=== PATIENT | female | born 1990 | race Caucasian/White ===

== ENCOUNTER 2024-11-21 16:48 | Emergency (ER) | payer BC, SELFPAY ==
[2024-11-21 16:57] VITALS: BP 169/108
[2024-11-21 21:42] VITALS: BP 144/93
[2024-11-21 21:43] VITALS: BMI 38.5
[2024-11-21 22:00] VITALS: BP 131/78
--- NOTE | 2024-11-21 22:10 | ED.GENMED ---
History of Present Illness
General
Chief Complaint: Crisis Evaluation
Source: patient
Exam Limitations: none
Time Seen by Provider: 11/21/24 21:49
Nursing documentation reviewed up to this point in time: agreed with
History of Present Illness
History of Present Illness:
33-year-old female past medical history of anxiety depression presents with mom for evaluation of depression anxiety. Patient has been on Zoloft for the past 2 months. Mom reports patient has been very anxious and does have issues with
sleeping/insomnia. For the past 24 hours patient started with new onset auditory and visual hallucinations. All throughout the night patient was having auditory visual hallucinations. Mom reports patient was very anxious and believes that what she
was seeing and hearing was real. Patient now is aware that they were not real but she is persistently having hallucinations. She reports she is seeing bugs flying around her foot and still is hearing music.
Patient smokes occasional marijuana. She does drink alcohol several times a week last drink 2 days ago.
Phy Exam
General Physical Exam
General Presentation: no apparent distress
General age: appears stated age
General Skin: warm and dry
General Habitus: obese
General Mental: alert
General Hydration: appears well hydrated
Cardiovascular Exam
Cardiovascular Exam: no murmur and tachycardia
Pulmonary Exam
Pulmonary Exam: lungs clear
Neurological Exam
Neurological Exam: alert and oriented x3
Musculoskeletal Exam
Musculoskeletal Exam: full ROM
Skin Exam
Skin Exam: normal color and warm/dry
Psychiatric Exam
Psychiatric Exam: anxious and hallucination (pt visibly is seeing 'nats on her foot ' )
Course
Orders/Labs/Results
Orders:
Orders
11/21/24 21:22
Crisis Consult Urgent
Reason for Consult: hallucinations
11/21/24 22:35
Test Result ONCE
11/21/24 22:38
CT Head W/o Iv Contrast Urgent
Comment:
Reason For Exam: new onset hallucinations
11/21/24 22:40
Alcohol Urgent
CMP [Comprehensive Metabolic Panel] Urgent
Complete Blood Count/With Diff Urgent
HCG, Serum Qualitative Screen Urgent
Comment: Notify provider if positive test present
11/21/24 23:29
Add On- LAB Urgent
Tests Added?: alcohol
Drug Screen, Urine [Urine Drug Abuse Screen] Urgent
Date Specimen was Collected: 11/22/24
Time Specimen was Collected: 00:30
11/22/24 02:54
Lorazepam [Ativan] 1 mg IV NOW STA
11/22/24 02:56
Lorazepam [Ativan] 2 mg .ROUTE .STK-MED ONE
11/22/24 10:18
Ibuprofen [Motrin] 400 mg .ROUTE .STK-MED ONE
11/22/24 10:22
Ibuprofen [Motrin] 400 mg PO NOW STA
Abnormal Lab Results
11/21/24
22:40
Hgb 10.8 L g/dL
(12.0-16.0)
Hct 34.3 L %
(37.0-47.0)
MCV 76.6 L fL
(81.0-99.0)
MCH 24.1 L pg
(27.0-31.0)
MCHC 31.5 L g/dL
(33.0-37.0)
RDW 19.3 H %
(11.5-14.5)
Plt Count 86 L 10^3/uL
(130-400)
Absolute Monos (auto) 0.7 H 10^3/uL
(0.1-0.6)
Carbon Dioxide 21 L mmol/L
(22-30)
Glucose 114 H mg/dl
(70-99)
AST 79 H U/L
(14-36)
ALT 64 H U/L
(0-35)
Albumin 5.1 H g/dl
(3.5-5.0)
11/21/24 22:40
11/21/24 22:40
Vital Signs
Initial and Last Documented VS:
Initial Vital Signs
Temp Pulse Resp BP Pulse Ox
98 F 108 16 169/108 97
11/21/24 16:57 11/21/24 16:57 11/21/24 16:57 11/21/24 16:57 11/21/24 16:57
Last Documented Vital Signs
Temp Pulse Resp BP Pulse Ox
98.5 F 83 16 156/104 100
11/22/24 03:04 11/22/24 07:45 11/22/24 07:45 11/22/24 12:13 11/22/24 07:45
[employer] consulted with Physician
[employer] consulted with physician?: Yes
Name of Physician Consulted: [facility]
MDM/Problems Addressed
MDM/Problems Addressed:
Patient is a 33-year-old female with anxiety started on Zoloft 2 months ago presents with 24 hours of auditory and visual hallucinations. Does report over that she has had difficulty sleeping and insomnia recently and did have a similar episode
several weeks ago. She is aware that she has been having these hallucinations. She is awake alert cooperative. She does drink alcohol several times a week but denies for the past several days.
She denies any recent trauma illness fever chills.
Basic labs reviewed AST ALT minimally elevated urine drug screen alcohol pending at this time. CAT scan ordered results pending. Patient was eval by crisis will likely need inpatient placement she is requesting this and agreeable.
*Radiology
Radiology exam reviewed: radiology read reviewed
*Pulse Oximetry
SaO2: 96
Oxygen Mode of Delivery: Room air
Patient hypoxic: no
*Critical Care Note
Total Time (30-74mins, 75-104mins- exclusive of procedures): Not Applicable
ED Attending Note
-
Portions of this chart may have been created with voice recognition software.� Occasional wrong word or��sound alike� substitutions may have occurred due to the inherent limitations of voice recognition software.
Discharge Plan
Departure
Patient Disposition: Psych Facility
Date of Disposition: 11/22/24
Time of Disposition: 00:09
Patient with high blood pressure during this ER visit?: Yes
Condition: Fair
Covid-19: Not Applicable
Discharge Problem:
Hallucinations
Prescriptions:
No Action
ondansetron 8 mg Tablet,Disintegrating
8 mg PO Q12H PRN (Reason: n/v)
pantoprazole [Protonix] 20 mg Tablet,Delayed Release (Dr/Ec)
20 mg PO DAILY
ibuprofen [Advil] 200 mg Tablet
600 - 800 mg PO Q8H PRN (Reason: pain)
sertraline [Zoloft] 50 mg Tablet
50 mg PO DAILY
Referrals:
Kenny Sanchez MD [Family Provider, Family Practice]
Interventions
Interventions:
*Risk Screen - Suicide Last Done: 11/21/24 16:59
*General Assessment Last Done: 11/21/24 21:44
*Neglect/Abuse Screening Last Done: 11/21/24 16:59
*ED- Fall Risk Assessment Last Done: 11/21/24 21:44
*ED COVID-19 Vaccine History Last Done: 11/21/24 21:44
*Nursing Disposition Last Done: 11/22/24 12:14
ED-Psychological Assessment Last Done: 11/22/24 07:46
Discharge Date and Time
Discharge Date/Time: 11/22/24 12:14
Print Language: UPPER SORBIAN
[2024-11-21 22:58] LABS: HCG, Serum Qualitative Screen Negative
[2024-11-21 23:00] VITALS: BP 140/94
[2024-11-21 23:01] LABS: % Basophils 0.5 % (0-2); % Eosinophils 0.6 % (0-6); % Immature Granulocytes 0.5 % (0-0.5); % Lymphocytes 20.5 % (20.5-51.1); % Monocytes 8.9 % (1.7-9.3); Absolute Eosinophils 0.1 10^3/uL (0-0.7); Absolute Lymphocytes 1.7 10^3/uL (1.2-3.4); Absolute Monocytes 0.7 10^3/uL (0.1-0.6); Absolute Neutrophils 5.8 10^3/uL (1.4-6.5); Hematocrit 34.3 % (37.0-47.0); Hemoglobin 10.8 g/dL (12.0-16.0); Mean Corp Hgb Conc. 31.5 g/dL (33.0-37.0); Mean Corpuscular Hgb 24.1 pg (27.0-31.0); Mean Corpuscular Volume 76.6 fL (81.0-99.0); Nucleated Red Blood Cells % 0 %; Red Blood Cell Count 4.48 10^6/uL (4.20-5.40); Red Cell Dist. Width 19.3 % (11.5-14.5); White Blood Cell Count 8.3 10^3/uL (4.8-10.8)
[2024-11-21 23:11] LABS: ALT (SGPT) 64 U/L (0-35); AST (SGOT) 79 U/L (14-36); Albumin 5.1 g/dl (3.5-5.0); Alkaline Phosphatase 53 U/L (38-126); Blood Urea Nitrogen 16 mg/dl (7-17); Calcium 9.7 mg/dl (8.4-10.2); Carbon Dioxide 21 mmol/L (22-30); Chloride 102 mmol/L (98-107); Estimated Creatinine Clearance > 125 ml/min; Glucose 114 mg/dl (70-99); Potassium 3.5 mmol/L (3.5-5.1); Sodium 138 mmol/L (135-145); Total Bilirubin 0.7 mg/dl (0.2-1.3); eGFR > 60.00
[2024-11-21 23:25] LABS: Platelet Count 86 10^3/uL (130-400)
[2024-11-22] VITALS: BP 148/80
[2024-11-22 00:33] LABS: Alcohol None Detected
[2024-11-22 00:53] LABS: Amphetamines Negative (Negative); Barbiturates Negative (Negative); Benzodiazepines Negative (Negative); Buprenorphine Negative (Negative); Cocaine Negative (Negative); Methamphetamines Negative (Negative)
[2024-11-22 00:54] LABS: Marijuana Negative (Negative); Methadone Negative (Negative); Opiates Negative (Negative); Phencyclidine Negative (Negative); Tricyclic Antidepressants Negative (Negative)
[2024-11-22 01:00] VITALS: BP 141/88
[2024-11-22 01:50] VITALS: BP 141/88
[2024-11-22] MEDS: ATIVAN 1 MG IV (02:59)
[2024-11-22 03:04] VITALS: BP 142/98
[2024-11-22 07:45] VITALS: BP 141/86
[2024-11-22] MEDS: MOTRIN 400 MG PO (10:22)
[2024-11-22 12:13] VITALS: BP 156/104
== END 2024-11-22 12:14 ==
LOC: EMR 16:48
PROVIDERS: Nurse Practitioner; EMERGENCY PHYSICIAN Emergency Medicine; FAMILY PHYSICIAN Family Medicine
DX: R44.0 Auditory hallucinations (principal); R44.1 Visual hallucinations; F41.9 Anxiety disorder, unspecified; F32.A Depression, unspecified; F17.200 Nicotine dependence, unspecified, uncomplicated; R03.0 Elevated blood-pressure reading, without diagnosis of hypertension; G47.00 Insomnia, unspecified
CPT/HCPCS: 99285; 96374; 70450; 80053; 80306; 82077; 84703; 85025